=== PATIENT | male | born 1955 | race Caucasian/White ===

== ENCOUNTER → 2017-09-07 | Outpatient (CLI) | payer OTHER ==
--- NOTE | 2017-09-07 12:44 | RAD ---
EXAM: Right knee, 2 views. HISTORY: Pain. COMPARISON: None. FINDINGS: Frontal and lateral views of the right knee are obtained. There is medial compartment joint space narrowing and mild tricompartmental spurring. There is a trace joint effusion. There is no fracture, dislocation or subluxation. IMPRESSION: Mild medial compartment predominant tricompartmental osteoarthritis of the right knee with a trace effusion. Electronically signed by: Evelin Poon MD (09/07/2017 12:41 PM) [id number]
== END | disposition home or self-care (01) ==
LOC: PMG 10:05
PROVIDERS: ATTEND Family Medicine
DX: M17.11 Unilateral primary osteoarthritis, right knee (principal)
CPT/HCPCS: 73560

== ENCOUNTER → 2020-02-18 | Outpatient (CLI) | payer MEDICARE, OTHER ==
--- NOTE | 2020-02-18 12:47 | RAD ---
EXAM: AP and lateral views of the right knee DATE: 02/18/2020 12:00 AM INDICATION: Reason: BMI 31, ARTHRITIS AND KNEE PAIN / Spl. Instructions: / History: COMPARISON: No Prior FINDINGS/ IMPRESSION: 1. Moderate medial compartment joint space narrowing of the right knee with tricompartmental osteophytes. 2. Small joint body at the posterior joint line. 3. No knee joint effusion. 4. Prepatellar soft tissue swelling. Electronically signed by: Tu Pimentel MD (02/18/2020 12:44 PM) [id number]
== END ==
LOC: PMG 10:30
PROVIDERS: ATTEND Family Medicine
DX: M25.761 Osteophyte, right knee (principal); M79.89 Other specified soft tissue disorders; Z68.30 Body mass index [BMI] 30.0-30.9, adult
CPT/HCPCS: 73560

== ENCOUNTER → 2020-03-20 | Outpatient (CLI) | payer MEDICARE, OTHER ==
--- NOTE | 2020-03-20 12:45 | RAD ---
EXAM: KNEE STANDING BILAT AP. HISTORY: Bilateral knee pain. COMPARISON: 02/18/2020. FINDINGS: There is moderate to severe joint space narrowing of the right medial compartment. There is mild lateral subluxation of the tibia with mild varus angulation. No fractures are identified. There are small osteophytes along the medial and lateral compartments of the left knee with preservation of joint spaces and alignment. IMPRESSION: 1. Moderate to severe medial compartmental osteoarthritis of the right knee with mild varus angulation. Electronically signed by: Yolanda Chavez MD (03/20/2020 12:42 PM) [id number]
== END ==
LOC: DXRAD 11:42
PROVIDERS: ATTEND Physician Assistant
DX: M17.11 Unilateral primary osteoarthritis, right knee (principal); M25.762 Osteophyte, left knee; M25.761 Osteophyte, right knee
CPT/HCPCS: 73565

== ENCOUNTER → 2020-10-12 | Outpatient (CLI) | payer MEDICARE, OTHER ==
--- NOTE | 2020-10-12 17:19 | RAD ---
XR KNEE_RT 1-2 VIEWS, XR KNEE_AP BILAT STANDING History: Reason: FOLLOW UP KNEE REPLACEMENT 2 WEEKS AGO / Spl. Instructions: / History: Technique: Standing AP view of the knees and 2 additional views the right knee. Comparison: March 20, 2020 Findings: Right total knee arthroplasty. No dislocation. No fracture. Mild to moderate left knee DJD on AP view , unchanged. Impression: 1. Interval right total knee arthroplasty. No hardware complications. Electronically signed by: Nazario Messina DO (10/12/2020 5:17 PM) [id number]
== END ==
LOC: DXRAD 13:28
PROVIDERS: ATTEND Physician Assistant
DX: M25.561 Pain in right knee (principal); Z96.651 Presence of right artificial knee joint
CPT/HCPCS: 73560; 73565

== ENCOUNTER → 2021-08-19 | Outpatient (CLI) | payer MEDICARE, OTHER ==
--- NOTE | 2021-08-19 16:55 | RAD ---
Exam: XR KNEE_AP BILAT STANDING, XR KNEE_RT 1-2 VIEWS History: Postknee replacement Comparison: 10/12/2020 Findings: Osseous mineralization is normal. No fracture or dislocation. There are postsurgical features from ri ght total knee arthroplasty with well-seated distal femur and proximal tibial components. Single view of the left knee demonstrates mild tibiofemoral space narrowing. Impression: 1. Right knee arthroplasty without evidence of complication. Electronically signed by: Rinku Scott MD (08/19/2021 4:53 PM) [facility]
--- NOTE | 2021-08-19 16:55 | RAD ---
Exam: XR KNEE_AP BILAT STANDING, XR KNEE_RT 1-2 VIEWS History: Postknee replacement Comparison: 10/12/2020 Findings: Osseous mineralization is normal. No fracture or dislocation. There are postsurgical features from ri ght total knee arthroplasty with well-seated distal femur and proximal tibial components. Single view of the left knee demonstrates mild tibiofemoral space narrowing. Impression: 1. Right knee arthroplasty without evidence of complication. Electronically signed by: Rinku Scott MD (08/19/2021 4:53 PM) [facility]
== END ==
LOC: RAD 12:30
PROVIDERS: ATTEND Physician Assistant
DX: M25.862 Other specified joint disorders, left knee (principal); M25.561 Pain in right knee; Z96.651 Presence of right artificial knee joint
CPT/HCPCS: 73560; 73565